=== PATIENT | male | born 1940 | race Caucasian/White ===

== ENCOUNTER 2020-01-01 20:54 | Inpatient (IN) | payer MEDICAID, OTHER ==
[~2020-01-01] VITALS: Ht 162.6 cm; Wt 72.1 kg
[2020-01-01] MEDS ORDERED: KETOROLAC 30MG/ML VIAL IV STA (21:12)
[2020-01-01] MEDS ORDERED: ONDANSETRON HCL 4MG/2ML INJ IV STA (21:12)
[2020-01-01] MEDS ORDERED: ASPIRIN 325MG TABLET PO ONE (21:15)
[2020-01-01] MEDS ORDERED: SODIUM CHLORIDE 0.9% 1000ML BAG (SEPSIS BOLUS) IV ONE (21:15)
[2020-01-01 22:40] LABS: BASOPHILS % 0.1 % (0.0-2.0); CLARITY URINE CLEAR (CLEAR); COLOR URINE DARK YELLOW (YELLOW); HEMATOCRIT. 41.5 % (42.0-52.0); HEMOGLOBIN. 14.2 g/dL (14.0-18.0); KETONES URINE 1+ (NEGATIVE); LEUKOCYTE ESTERASE URINE NEGATIVE (NEGATIVE); LYMPHOCYTES % 10.1 % (20.0-50.0); MEAN CORPUSCULAR VOLUME 90.5 fL (80.0-94.0); MEAN PLATELET VOLUME 8.9 fl (7.4-10.4); MONOCYTES % 4.6 % (2.0-8.0); NEUTROPHILS % 85.2 % (40.0-76.0); NITRITE URINE NEGATIVE (NEGATIVE); OCCULT BLOOD URINE NEGATIVE (NEGATIVE); PH URINE 5.5 (4.5-8.0); PLATELET 185 x1000/uL (130-400); PROTEIN URINE 2+ (NEGATIVE); RED BLOOD CELL COUNT 4.58 mill/uL (4.7-6.1); RED CELL DISTRIBUTION WIDTH 13.1 % (11.6-14.6); UROBILINOGEN URINE >8.0 E.U./dL (0.2-1.0)
[2020-01-01 22:46] LABS: CHLORIDE 100 mEq/L (98-107)
[2020-01-01 22:48] LABS: PROTHROMBIN TIME 10.5 sec (9.6-11.0)
[2020-01-01] MEDS ORDERED: CEFTRIAXONE 1 G PREMIX 50 ML IV ONE (23:15)
[2020-01-02] MEDS ORDERED: DOCUSATE SODIUM 100MG CAPSULE PO PRN (05:15)
[2020-01-02] MEDS ORDERED: MAGNESIUM/ALUMINUM HYDROXIDE/SIMETHICONE 30ML UDC PO PRN (05:15)
[2020-01-02] MEDS ORDERED: HYDROMORPHONE HCL/PF 2MG/ML CPJ IV PRN (05:15)
[2020-01-02 05:59] LABS: CREATINE KINASE 50 IU/L (39-308)
[2020-01-02] MEDS: AZITHROMYCIN 500 MG in DEXT 5% WATER 250 ML IV SCH (06:12)
[2020-01-02] MEDS: ENOXAPARIN 40MG/0.4ML SYR SUBCUT SCH (08:55)
[2020-01-02] MEDS: CLONIDINE 0.1MG TABLET PO PRN (15:21)
[2020-01-02] MEDS: HYDROCODONE/ACETAMINOPHEN 5/325MG TABLET PO PRN (15:22)
[2020-01-02] MEDS: GUAIFENESIN 200MG/10ML SUGAR FREE UDC PO PRN (15:22)
[2020-01-02] MEDS: ACETAMINOPHEN 325MG TABLET PO PRN (15:22)
[2020-01-02] MEDS: DEXAMETHASONE 4MG TABLET PO SCH (16:06)
[2020-01-02] MEDS: ALBUTEROL 6.7GM HFA INHALER ORI SCH ×2 (16:53→23:00)
[2020-01-02 17:02] LABS: CREATINE KINASE 48 IU/L (39-308)
[2020-01-02] MEDS ORDERED: CEFTRIAXONE 1 G PREMIX 50 ML IV SCH (21:00)
[2020-01-02 21:50] VITALS: BP 131/64
[2020-01-02 22:00] VITALS: BP 131/64
[2020-01-03] VITALS: BP 138/66
[2020-01-03] MEDS: CEFTRIAXONE 1 G PREMIX 50 ML IV SCH ×2 (00:42→21:42)
[2020-01-03 04:00] VITALS: BP 145/66
[2020-01-03] MEDS: ALBUTEROL 6.7GM HFA INHALER ORI SCH ×4 (05:51→22:27)
[2020-01-03 07:29] LABS: HEMATOCRIT. 39.7 % (42.0-52.0); HEMOGLOBIN. 13.6 g/dL (14.0-18.0); LYMPHOCYTES % 9.6 % (20.0-50.0); MEAN CORPUSCULAR VOLUME 90.6 fL (80.0-94.0); MONOCYTES % 2.8 % (2.0-8.0); NEUTROPHILS % 87.6 % (40.0-76.0); PLATELET 216 x1000/uL (130-400); RED BLOOD CELL COUNT 4.38 mill/uL (4.7-6.1); RED CELL DISTRIBUTION WIDTH 12.7 % (11.6-14.6)
[2020-01-03 07:44] LABS: CHLORIDE 105 mEq/L (98-107)
[2020-01-03] MEDS: AZITHROMYCIN 500 MG in DEXT 5% WATER 250 ML IV SCH (08:21)
[2020-01-03] MEDS: ENOXAPARIN 40MG/0.4ML SYR SUBCUT SCH (08:21)
[2020-01-03] MEDS: DEXAMETHASONE 4MG TABLET PO SCH (08:21)
[2020-01-03 12:00] VITALS: BP 151/62
[2020-01-03 16:00] VITALS: BP 104/56
[2020-01-03] MEDS ORDERED: REMDESIVIR 200 MG in SODIUM CHLORIDE 0.9% 250 ML IV NR (18:00)
[2020-01-03 20:00] VITALS: BP 146/68
[2020-01-03] MEDS: ENOXAPARIN 80MG/0.8ML SYR SUBCUT SCH (21:42)
[2020-01-04] VITALS: BP 165/78
[2020-01-04 04:00] VITALS: BP 163/65
[2020-01-04] MEDS: ALBUTEROL 6.7GM HFA INHALER ORI SCH ×4 (05:03→23:43)
[2020-01-04] MEDS: CLONIDINE 0.1MG TABLET PO PRN ×2 (05:24→20:37)
[2020-01-04 08:00] VITALS: BP 141/68
[2020-01-04] MEDS: DEXAMETHASONE 4MG TABLET PO SCH (08:37)
[2020-01-04] MEDS: GUAIFENESIN 200MG/10ML SUGAR FREE UDC PO PRN (08:37)
[2020-01-04] MEDS: ENOXAPARIN 80MG/0.8ML SYR SUBCUT SCH ×2 (08:37→20:37)
[2020-01-04] MEDS: AZITHROMYCIN 250 MG TABLET PO SCH (08:37)
[2020-01-04 12:00] VITALS: BP 144/67
[2020-01-04 16:00] VITALS: BP 141/75
[2020-01-04] MEDS: REMDESIVIR 100 MG in SODIUM CHLORIDE 0.9% 250 ML IV SCH (17:39)
[2020-01-04 20:00] VITALS: BP 166/80
[2020-01-04] MEDS: ONDANSETRON HCL 4MG/2ML INJ IV PRN (20:37)
[2020-01-04] MEDS: CEFTRIAXONE 1 G PREMIX 50 ML IV SCH (20:37)
[2020-01-05] VITALS: BP 123/87
[2020-01-05 04:00] VITALS: BP 150/86
[2020-01-05] MEDS: ALBUTEROL 6.7GM HFA INHALER ORI SCH ×3 (04:38→16:06)
[2020-01-05] MEDS: GUAIFENESIN 200MG/10ML SUGAR FREE UDC PO PRN (05:20)
[2020-01-05 08:00] VITALS: BP 160/95
[2020-01-05] MEDS: AZITHROMYCIN 250 MG TABLET PO SCH (08:30)
[2020-01-05] MEDS: ENOXAPARIN 80MG/0.8ML SYR SUBCUT SCH ×2 (08:31→21:02)
[2020-01-05] MEDS: DEXAMETHASONE 4MG TABLET PO SCH (08:31)
[2020-01-05] MEDS ORDERED: DILTIAZEM HCL 5MG/ML 5ML VIAL IV SCH (12:00)
[2020-01-05] MEDS: DILTIAZEM HCL 30MG TABLET PO SCH ×2 (12:00→17:27)
[2020-01-05 16:00] VITALS: BP_SYST 126; BP_SYST 144; BP_DIAS 63; BP_DIAS 87
[2020-01-05] MEDS: REMDESIVIR 100 MG in SODIUM CHLORIDE 0.9% 250 ML IV SCH (17:27)
[2020-01-05 20:00] VITALS: BP 128/72
[2020-01-05] MEDS: CEFTRIAXONE 1 G PREMIX 50 ML IV SCH (21:02)
[2020-01-06] VITALS: BP 141/81
[2020-01-06] MEDS: ALBUTEROL 6.7GM HFA INHALER ORI SCH ×4 (00:18→17:21)
[2020-01-06] MEDS: DILTIAZEM HCL 30MG TABLET PO SCH ×4 (00:19→17:04)
[2020-01-06 04:00] VITALS: BP 127/70
[2020-01-06 08:00] VITALS: BP 146/91
[2020-01-06] MEDS: AZITHROMYCIN 250 MG TABLET PO SCH (09:08)
[2020-01-06] MEDS: DEXAMETHASONE 4MG TABLET PO SCH (09:08)
[2020-01-06] MEDS: CLONIDINE 0.1MG TABLET PO PRN (09:08)
[2020-01-06] MEDS: ENOXAPARIN 80MG/0.8ML SYR SUBCUT SCH ×2 (09:08→21:34)
[2020-01-06] MEDS: ONDANSETRON HCL 4MG/2ML INJ IV PRN (09:19)
[2020-01-06 12:00] VITALS: BP 117/71
[2020-01-06] MEDS ORDERED: AMIODARONE HCL 150 MG in DEXT 5% WATER 100 ML IV NR (13:30)
[2020-01-06] MEDS ORDERED: AMIODARONE HCL 900 MG in DEXT 5% WATER 482 ML IV PRN (13:30)
[2020-01-06 16:00] VITALS: BP 106/61
[2020-01-06] MEDS: REMDESIVIR 100 MG in SODIUM CHLORIDE 0.9% 250 ML IV SCH (18:43)
[2020-01-06 20:48] VITALS: BP 145/87
[2020-01-06] MEDS: CEFTRIAXONE 1 G PREMIX 50 ML IV SCH (21:33)
[2020-01-06] MEDS: GUAIFENESIN 200MG/10ML SUGAR FREE UDC PO PRN (21:55)
[2020-01-07] MEDS: ALBUTEROL 6.7GM HFA INHALER ORI SCH ×4 (00:43→16:26)
[2020-01-07] MEDS: DILTIAZEM HCL 30MG TABLET PO SCH ×4 (00:44→18:32)
[2020-01-07 00:48] VITALS: BP 152/102
[2020-01-07] MEDS: HYDROCODONE/ACETAMINOPHEN 5/325MG TABLET PO PRN (01:04)
[2020-01-07 04:00] VITALS: BP 125/96
[2020-01-07] MEDS: ACETAMINOPHEN 325MG TABLET PO PRN (05:54)
[2020-01-07] MEDS: DEXAMETHASONE 4MG TABLET PO SCH ×2 (07:52→07:53)
[2020-01-07] MEDS: ENOXAPARIN 80MG/0.8ML SYR SUBCUT SCH ×2 (07:53→21:27)
[2020-01-07 08:00] VITALS: BP 135/85
[2020-01-07 12:00] VITALS: BP 123/74
[2020-01-07 16:00] VITALS: BP 114/65
[2020-01-07] MEDS: REMDESIVIR 100 MG in SODIUM CHLORIDE 0.9% 250 ML IV SCH (18:32)
[2020-01-07 20:00] VITALS: BP 151/95
[2020-01-07] MEDS: CEFTRIAXONE 1 G PREMIX 50 ML IV SCH (21:26)
[2020-01-08] VITALS: BP 153/94
[2020-01-08] MEDS: DILTIAZEM HCL 30MG TABLET PO SCH ×3 (00:09→12:31)
[2020-01-08] MEDS: ALBUTEROL 6.7GM HFA INHALER ORI SCH ×3 (00:10→11:34)
[2020-01-08 04:00] VITALS: BP_SYST 111; BP_SYST 156; BP_DIAS 56; BP_DIAS 79
[2020-01-08 08:00] VITALS: BP 134/85
[2020-01-08] MEDS: DEXAMETHASONE 4MG TABLET PO SCH (08:06)
[2020-01-08] MEDS: ENOXAPARIN 80MG/0.8ML SYR SUBCUT SCH (08:06)
[2020-01-08 12:00] VITALS: BP 142/88
[2020-01-08 14:39] VITALS: BP 128/85
[2020-01-08 16:00] VITALS: BP 135/88
== END 2020-01-08 17:15 | disposition home or self-care (01) | DRG 720 ==
LOC: ER 20:54 → 7WST 23:07 → ENRESERV 01-02 20:06
PROVIDERS: ADMIT Hospitalist; ATTEND Hospitalist
DX: A41.89 Other specified sepsis (principal); U07.1 COVID-19; J96.00 Acute respiratory failure, unspecified whether with hypoxia or hypercapnia; E43 Unspecified severe protein-calorie malnutrition; J12.89 Other viral pneumonia; R74.0 Nonspecific elevation of levels of transaminase and lactic acid dehydrogenase [LDH]; I48.91 Unspecified atrial fibrillation; Z79.01 Long term (current) use of anticoagulants; Z68.27 Body mass index [BMI] 27.0-27.9, adult
CPT/HCPCS: 36415; 71045; 80053; 80076; 81003; 82550; 82728; 82962; 83605; 83615; 83880; 84145; 84484; 85025; 93005; 93970; 94640; 99291; J0282; J0456; J0696; J1650; J1885; J2405; J3490; J7030; J7050; J7060; J8540; Q9957; C9803-CS; U0003-CS

== ENCOUNTER 2020-03-10 23:58 | Inpatient (IN) | payer MEDICAID ==
[~2020-03-10] VITALS: Ht 167.6 cm; Wt 77.1 kg
[2020-03-11 01:13] LABS: CHLORIDE 103 mEq/L (98-107)
[2020-03-11 01:21] LABS: BASOPHILS % 0.9 % (0.0-2.0); EOSINOPHILS % 4.4 % (0.0-5.0); HEMATOCRIT. 36.3 % (42.0-52.0); HEMOGLOBIN. 11.9 g/dL (14.0-18.0); LYMPHOCYTES % 25.1 % (20.0-50.0); MEAN CORPUSCULAR HEMOGLOBIN 28.2 pg (28.0-32.0); MEAN CORPUSCULAR VOLUME 86.3 fL (80.0-94.0); MEAN PLATELET VOLUME 9.1 fl (7.4-10.4); NEUTROPHILS % 60.6 % (40.0-76.0); PLATELET 194 x1000/uL (130-400); RED BLOOD CELL COUNT 4.21 mill/uL (4.7-6.1); RED CELL DISTRIBUTION WIDTH 15.2 % (11.6-14.6)
[2020-03-11] MEDS ORDERED: FUROSEMIDE 20MG/2ML VIAL IVP ONE (02:30)
[2020-03-11] MEDS ORDERED: ONDANSETRON HCL 4MG/2ML INJ IV PRN (03:30)
[2020-03-11] MEDS ORDERED: CLONIDINE 0.1MG TABLET PO PRN (03:30)
[2020-03-11] MEDS ORDERED: DIPHENHYDRAMINE 50MG/ML VIAL IV PRN (03:30)
[2020-03-11] MEDS ORDERED: ACETAMINOPHEN 325MG TABLET PO PRN (03:30)
[2020-03-11] MEDS ORDERED: GUAIFENESIN 200MG/10ML SUGAR FREE UDC PO PRN (03:30)
[2020-03-11] MEDS ORDERED: IPRATROPIUM/ALBUTEROL 0.5-3(2.5)MG/3ML NEB HHN PRN (03:30)
[2020-03-11] MEDS ORDERED: HYDROCODONE/ACETAMINOPHEN 5/325MG TABLET PO PRN (03:30)
[2020-03-11] MEDS ORDERED: MAGNESIUM/ALUMINUM HYDROXIDE/SIMETHICONE 30ML UDC PO PRN (03:30)
[2020-03-11] MEDS: DILTIAZEM HCL 30MG TABLET PO SCH ×3 (06:27→17:18)
[2020-03-11] MEDS: SODIUM CHLORIDE 0.9% INJ 3ML FLUSH IVF SCH ×2 (06:28→11:44)
[2020-03-11 08:48] VITALS: BP_SYST 154; BP_SYST 177; BP_DIAS 95
[2020-03-11] MEDS: AMIODARONE HCL 200 MG TABLET PO SCH (10:22)
[2020-03-11] MEDS: APIXABAN 5 MG TABLET PO SCH ×2 (10:22→16:40)
[2020-03-11 12:00] VITALS: BP 148/86
[2020-03-11 16:00] VITALS: BP 106/82
[2020-03-11 19:52] VITALS: BP 142/97
[2020-03-11 20:15] LABS: CREATINE KINASE 43 IU/L (39-308)
[2020-03-11 20:16] LABS: CREATINE KINASE MB FRACTION 1.3 ng/mL (0.5-3.6); T4 FREE 1.25 ng/dL (0.76-1.46)
[2020-03-11] MEDS ORDERED: ZOLPIDEM TARTRATE 5MG TABLET PO PRN (21:00)
[2020-03-12 00:10] LABS: CREATINE KINASE 44 IU/L (39-308)
[2020-03-12 00:11] LABS: CREATINE KINASE MB FRACTION 1.1 ng/mL (0.5-3.6)
[2020-03-12] MEDS: DILTIAZEM HCL 30MG TABLET PO SCH ×4 (01:00→17:49)
[2020-03-12] MEDS: SODIUM CHLORIDE 0.9% INJ 3ML FLUSH IVF SCH ×4 (01:00→21:28)
[2020-03-12 05:00] VITALS: BP 134/80
[2020-03-12 06:00] LABS: CREATINE KINASE 36 IU/L (39-308)
[2020-03-12 06:01] LABS: CREATINE KINASE MB FRACTION 1.2 ng/mL (0.5-3.6)
[2020-03-12 08:00] VITALS: BP 144/96
[2020-03-12] MEDS: APIXABAN 5 MG TABLET PO SCH ×2 (08:18→17:49)
[2020-03-12] MEDS: AMIODARONE HCL 200 MG TABLET PO SCH (08:19)
[2020-03-12] MEDS: ACETAMINOPHEN 325MG TABLET PO PRN (10:45)
[2020-03-12 12:00] VITALS: BP 136/89
[2020-03-12] MEDS ORDERED: FUROSEMIDE 40MG/4ML VIAL IVP SCH (13:15)
[2020-03-12 14:00] VITALS: BP 139/79
[2020-03-12 16:00] VITALS: BP 129/87
[2020-03-12 20:00] VITALS: BP 129/84
[2020-03-12] MEDS: FUROSEMIDE 40MG/4ML VIAL IVP SCH (20:30)
[2020-03-13] VITALS: BP 121/80
[2020-03-13] MEDS: DILTIAZEM HCL 30MG TABLET PO SCH ×3 (01:22→13:26)
[2020-03-13 04:00] VITALS: BP 116/69
[2020-03-13] MEDS: SODIUM CHLORIDE 0.9% INJ 3ML FLUSH IVF SCH (06:22)
[2020-03-13] MEDS: FUROSEMIDE 40MG/4ML VIAL IVP SCH ×2 (06:22→16:29)
[2020-03-13 07:21] LABS: CHLORIDE 101 mEq/L (98-107)
[2020-03-13 07:26] LABS: PHOSPHORUS 3.8 mg/dL (2.5-4.9)
[2020-03-13 08:00] VITALS: BP 124/81
[2020-03-13] MEDS: APIXABAN 5 MG TABLET PO SCH ×2 (08:22→16:29)
[2020-03-13] MEDS: AMIODARONE HCL 200 MG TABLET PO SCH (08:22)
[2020-03-13 12:00] VITALS: BP 114/66
[2020-03-13] MEDS: ACETAMINOPHEN 325MG TABLET PO PRN (13:29)
[2020-03-13 16:00] VITALS: BP 124/80
[2020-03-13 16:14] VITALS: BP 120/84
== END 2020-03-13 17:30 | disposition home or self-care (01) | DRG 201 ==
LOC: ER 23:58 → 7WST 03-11 03:02 → ENRESERV 03-11 07:51 → 6WST 03-12 14:15
PROVIDERS: ADMIT Internal Medicine; ATTEND Internal Medicine
DX: I48.91 Unspecified atrial fibrillation (principal); J96.01 Acute respiratory failure with hypoxia; J18.9 Pneumonia, unspecified organism; M19.90 Unspecified osteoarthritis, unspecified site; I50.43 Acute on chronic combined systolic (congestive) and diastolic (congestive) heart failure; Z79.01 Long term (current) use of anticoagulants; Z20.828 Contact with and (suspected) exposure to other viral communicable diseases; Z79.899 Other long term (current) drug therapy; Z86.19 Personal history of other infectious and parasitic diseases
CPT/HCPCS: 36415; 71045; 80048; 80053; 80061; 82550; 82553; 83036; 83735; 83880; 84100; 84439; 84443; 84484; 85025; 85379; 87635; 93005; 93306; 94640; 99291; J1940

== ENCOUNTER 2021-02-23 07:14 | Emergency (ER) | payer MEDICAID ==
[~2021-02-23] VITALS: Ht 167.6 cm; Wt 72.0 kg
[~2021-02-23 07:14] MED LIST: APIX5TAB PO; DILT60TA35 PO; FURO-151 MT; POTA-9 MT
[2021-02-23 07:19] VITALS: BP 142/112
[2021-02-23 09:14] LABS: BASOPHILS % 0.7 % (0.0-2.0); EOSINOPHILS % 4.8 % (0.0-5.0); HEMATOCRIT. 41.3 % (42.0-52.0); HEMOGLOBIN. 13.7 g/dL (14.0-18.0); LYMPHOCYTES % 23.4 % (20.0-50.0); MEAN CORPUSCULAR HEMOGLOBIN 28.9 pg (28.0-32.0); MEAN CORPUSCULAR VOLUME 87.1 fL (80.0-94.0); MONOCYTES % 7.3 % (2.0-8.0); NEUTROPHILS % 63.8 % (40.0-76.0); PLATELET 174 x1000/uL (130-400); RED BLOOD CELL COUNT 4.74 mill/uL (4.7-6.1); RED CELL DISTRIBUTION WIDTH 15.3 % (11.6-14.6)
[2021-02-23 09:19] LABS: CHLORIDE 107 mEq/L (98-107)
[2021-02-23 09:23] LABS: INR 1.1; PARTIAL THROMBOPLASTIN TIME 29.1 sec (23.4-31.0); PROTHROMBIN TIME 11.4 sec (9.6-11.0)
[2021-02-23] MEDS ORDERED: IBUPROFEN 600MG TABLET PO ONE (10:00)
== END 2021-02-23 11:11 | disposition home or self-care (01) ==
LOC: ER 07:14
DX: M47.892 Other spondylosis, cervical region (principal)
CPT/HCPCS: 36415; 70450; 72125; 73590; 80048; 85025; 85610; 85730; 99285; Z7610

== ENCOUNTER 2024-05-22 11:34 | Inpatient (IN) | payer MEDICAID ==
[~2024-05-22] VITALS: Ht 160 cm; Wt 72.6 kg
[~2024-05-22 11:34] MED LIST changes: +POTA-202 MT; -POTA-9 MT
[2024-05-22] MEDS: DILTIAZEM HCL 5MG/ML 5ML VIAL IV ONE (12:44)
[2024-05-22] MEDS: DILTIAZEM HCL 30MG TABLET PO ONE (12:50)
[2024-05-22 12:51] LABS: BASOPHILS % 0.4 % (0.0-2.0); CHLORIDE 104 mEq/L (98-107); EOSINOPHILS % 2.6 % (0.0-5.0); HEMOGLOBIN. 12.1 g/dL (14.0-18.0); LYMPHOCYTES % 17.9 % (20.0-50.0); MEAN CORPUSCULAR HEMOGLOBIN 28.7 pg (28.0-32.0); MEAN CORPUSCULAR HGB CONC 32.7 g/dL (31.0-37.0); MEAN CORPUSCULAR VOLUME 87.9 fL (80.0-94.0); MEAN PLATELET VOLUME 8.4 fl (7.4-10.4); MONOCYTES % 8.5 % (2.0-8.0); NEUTROPHILS % 70.6 % (40.0-76.0); PLATELET 222 x1000/uL (130-400); POTASSIUM 4.3 mEq/L (3.5-5.1); RED BLOOD CELL COUNT 4.21 mill/uL (4.7-6.1); RED CELL DISTRIBUTION WIDTH 14.4 % (11.6-14.6); SODIUM 137 mEq/L (136-145); WHITE BLOOD COUNT 7.4 x1000/uL (4.5-11.0)
[2024-05-22 12:52] LABS: CALCIUM 9.6 mg/dL (8.7-10.4); CARBON DIOXIDE 25 mEq/L (21-32)
[2024-05-22 12:57] LABS: CREATININE 0.9 mg/dL (0.6-1.3); GLUCOSE 96 mg/dL (70-105); UREA NITROGEN BLOOD 9 mg/dL (9-23)
[2024-05-22 12:58] LABS: TROPONIN I HIGH SENSITIVITY 13 ng/L (3.0-53)
[2024-05-22] MEDS: ENOXAPARIN 60MG/0.6ML SYR SUBCUT ONE (14:12)
[2024-05-22] MEDS ORDERED: ACETAMINOPHEN 325MG TABLET PO PRN (14:15)
[2024-05-22] MEDS ORDERED: ONDANSETRON HCL 4MG/2ML INJ IV PRN (14:15)
[2024-05-22] MEDS ORDERED: NITROGLYCERIN 0.4MG TABLET SL SL PRN (14:45)
[2024-05-22 15:31] LABS: CLARITY URINE CLEAR (CLEAR); COLOR URINE YELLOW (YELLOW); GLUCOSE URINE NEGATIVE (NEGATIVE); KETONES URINE NEGATIVE (NEGATIVE); LEUKOCYTE ESTERASE URINE NEGATIVE (NEGATIVE); NITRITE URINE NEGATIVE (NEGATIVE); OCCULT BLOOD URINE NEGATIVE (NEGATIVE); PROTEIN URINE NEGATIVE (NEGATIVE); SPECIFIC GRAVITY URINE 1.006 (1.005-1.030)
[2024-05-22] MEDS: FUROSEMIDE 20MG/2ML VIAL IVP SCH (15:32)
[2024-05-22 15:44] LABS: *AMPHETAMINES SCREEN URINE NEGATIVE (NEGATIVE); *BARBITURATES SCREEN URINE NEGATIVE (NEGATIVE); *BENZODIAZEPINES SCREEN URINE NEGATIVE (NEGATIVE); *COCAINE SCREEN URINE NEGATIVE (NEGATIVE); METHADONE URINE SCREEN NEGATIVE (NEGATIVE); OPIATES URINE SCREEN NEGATIVE (NEGATIVE)
[2024-05-22 15:45] LABS: CANNABINOID URINE SCREEN NEGATIVE (NEGATIVE); ECSTASY MDMA SCREEN URINE NEGATIVE (NEGATIVE); PHENCYCLIDINE URINE SCREEN NEGATIVE (NEGATIVE)
[2024-05-22 15:53] LABS: PHOSPHORUS 3.2 mg/dL (2.5-4.9)
[2024-05-22 15:56] LABS: THYROID STIMULATING HORMONE 0.35 uIU/mL (0.55-4.78)
[2024-05-22] MEDS: PANTOPRAZOLE SODIUM 40 MG/VIAL IV SCH (16:45)
[2024-05-22 16:58] LABS: IRON 71 ug/dL (65-175)
[2024-05-22 17:01] LABS: TOTAL IRON BINDING CAPACITY 383 ug/dl (250-425)
[2024-05-22 17:04] LABS: FOLIC ACID (FOLATE) SERUM > 20.00 ng/mL (>5.38)
[2024-05-22 17:05] LABS: VITAMIN B12 SERUM 268 pg/mL (211-911)
[2024-05-22 17:30] VITALS: BP 143/80; PULSE 104; RESP 18; TEMP 36.61404; TEMP 36.6404; O2SAT 98
[2024-05-22 20:00] VITALS: BP 138/69; PULSE 105; RESP 18; TEMP 36.6696; O2SAT 98
[2024-05-22] MEDS ORDERED: DILTIAZEM HCL 30MG TABLET PO SCH (22:00)
[2024-05-22] MEDS: DILTIAZEM HCL 60MG TABLET PO SCH (23:24)
[2024-05-23] VITALS: BP 125/73; PULSE 82; RESP 18; TEMP 36.61404; O2SAT 100
[2024-05-23] MEDS: IPRATROPIUM/ALBUTEROL 0.5-3(2.5)MG/3ML NEB HHN PRN
[2024-05-23 00:02] VITALS: PULSE 92; RESP 20; O2SAT 95
[2024-05-23 04:00] VITALS: BP 137/72; PULSE 90; RESP 18; TEMP 36.33624; O2SAT 96
[2024-05-23 08:00] VITALS: BP 136/77; PULSE 101; RESP 18; TEMP 36.72516; O2SAT 98
[2024-05-23 08:43] LABS: BASOPHILS % 0.4 % (0.0-2.0); EOSINOPHILS % 2.5 % (0.0-5.0); HEMATOCRIT. 37.7 % (42.0-52.0); HEMOGLOBIN. 12.4 g/dL (14.0-18.0); LYMPHOCYTES % 19.1 % (20.0-50.0); MEAN CORPUSCULAR HEMOGLOBIN 28.7 pg (28.0-32.0); MEAN CORPUSCULAR HGB CONC 32.9 g/dL (31.0-37.0); MEAN CORPUSCULAR VOLUME 87.3 fL (80.0-94.0); MEAN PLATELET VOLUME 8.5 fl (7.4-10.4); MONOCYTES % 9.1 % (2.0-8.0); NEUTROPHILS % 68.9 % (40.0-76.0); PLATELET 222 x1000/uL (130-400); RED BLOOD CELL COUNT 4.32 mill/uL (4.7-6.1); RED CELL DISTRIBUTION WIDTH 14.5 % (11.6-14.6); WHITE BLOOD COUNT 6.3 x1000/uL (4.5-11.0)
[2024-05-23 08:46] LABS: CARBON DIOXIDE 26 mEq/L (21-32); CHLORIDE 102 mEq/L (98-107); POTASSIUM 3.8 mEq/L (3.5-5.1); SODIUM 139 mEq/L (136-145)
[2024-05-23 08:47] LABS: CALCIUM 9.6 mg/dL (8.7-10.4)
[2024-05-23 08:51] LABS: CREATININE 0.9 mg/dL (0.6-1.3); TROPONIN I HIGH SENSITIVITY 11 ng/L (3.0-53)
[2024-05-23 08:52] LABS: GLUCOSE 96 mg/dL (70-105); LDL CHOLESTEROL 86 mg/dL (5-100); TRIGLYCERIDE 77 mg/dL (0-150); UREA NITROGEN BLOOD 12 mg/dL (9-23)
[2024-05-23 08:54] LABS: CHOLESTEROL 170 mg/dL (<200); HDL CHOLESTEROL 61 mg/dL (>55)
[2024-05-23 08:55] LABS: THYROID STIMULATING HORMONE 0.31 uIU/mL (0.55-4.78)
[2024-05-23] MEDS: ASPIRIN 81MG EC TABLET PO SCH (09:25)
[2024-05-23] MEDS: APIXABAN 5 MG TABLET PO SCH (09:25)
[2024-05-23] MEDS: MAGNESIUM 2 G PREMIX 50 ML IV SCH (11:09)
[2024-05-23] MEDS: MAGNESIUM OXIDE 400MG TABLET PO SCH (11:09)
[2024-05-23 12:00] VITALS: BP 138/80; PULSE 98; RESP 18; TEMP 36.61404; O2SAT 100
[2024-05-23 16:00] VITALS: BP 129/86; PULSE 84; RESP 18; TEMP 36.6696; O2SAT 98
[2024-05-24] VITALS: PULSE 78; RESP 18; TEMP 36.61404; O2SAT 100
[2024-05-24 04:00] VITALS: PULSE 78; RESP 18; TEMP 36.78072; O2SAT 99
[2024-05-24 08:00] VITALS: BP 133/70; PULSE 83; RESP 20; TEMP 36.78072; O2SAT 100
[2024-05-24 11:45] LABS: BASOPHILS % 0.5 % (0.0-2.0); EOSINOPHILS % 3.1 % (0.0-5.0); HEMATOCRIT. 41.4 % (42.0-52.0); HEMOGLOBIN. 13.2 g/dL (14.0-18.0); LYMPHOCYTES % 15.4 % (20.0-50.0); MEAN CORPUSCULAR HEMOGLOBIN 28.4 pg (28.0-32.0); MEAN CORPUSCULAR HGB CONC 31.9 g/dL (31.0-37.0); MEAN CORPUSCULAR VOLUME 89.2 fL (80.0-94.0); MEAN PLATELET VOLUME 10.4 fl (7.4-10.4); MONOCYTES % 6.6 % (2.0-8.0); NEUTROPHILS % 74.4 % (40.0-76.0); PLATELET 421 x1000/uL (130-400); RED BLOOD CELL COUNT 4.65 mill/uL (4.7-6.1); RED CELL DISTRIBUTION WIDTH 14.8 % (11.6-14.6); WHITE BLOOD COUNT 7.8 x1000/uL (4.5-11.0)
[2024-05-24 12:00] VITALS: BP 124/82; PULSE 80; RESP 18; TEMP 36.44736; O2SAT 99
[2024-05-24 12:09] LABS: CHLORIDE 103 mEq/L (98-107); POTASSIUM 4.4 mEq/L (3.5-5.1); SODIUM 138 mEq/L (136-145)
[2024-05-24 12:10] LABS: CALCIUM 9.7 mg/dL (8.7-10.4); CARBON DIOXIDE 28 mEq/L (21-32)
[2024-05-24 12:15] LABS: CREATININE 1.1 mg/dL (0.6-1.3); GLUCOSE 99 mg/dL (70-105); UREA NITROGEN BLOOD 15 mg/dL (9-23)
[2024-05-24 16:00] VITALS: BP 144/82; PULSE 81; RESP 20; TEMP 36.00288; O2SAT 97
[2024-05-24 20:00] VITALS: BP 147/90; PULSE 73; RESP 18; TEMP 36.44736; O2SAT 96
[2024-05-24] MEDS: ACETAMINOPHEN 325MG TABLET PO PRN (20:30)
[2024-05-25] VITALS: BP 145/89; PULSE 89; RESP 18; TEMP 36.55848; O2SAT 100
[2024-05-25 04:00] VITALS: BP 115/66; PULSE 85; RESP 18; TEMP 36.44736; O2SAT 100
[2024-05-25 08:00] VITALS: BP 128/81; PULSE 93; RESP 18; TEMP 36.22512; O2SAT 96
[2024-05-25] MEDS: FAMOTIDINE 20MG/2ML VIAL IV SCH (09:06)
[2024-05-25 12:00] VITALS: BP 105/58; PULSE 96; RESP 18; TEMP 35.66952; O2SAT 96
[2024-05-25 14:50] VITALS: RESP 18
[2024-05-25] MEDS: IBUPROFEN 400MG TABLET PO NR (14:50)
[2024-05-25 15:45] VITALS: BP 105/58; PULSE 96; TEMP 96.2; O2SAT 96
[2024-05-25] MEDS ORDERED: MAGN400C MT (15:51)
== END 2024-05-25 16:33 | disposition home or self-care (01) | DRG 194 ==
LOC: ER 11:45 → 7EST 13:14 → EDBEDREQ 13:17
PROVIDERS: ADMIT Internal Medicine; ATTEND Internal Medicine
DX: I11.0 Hypertensive heart disease with heart failure (principal); Z79.01 Long term (current) use of anticoagulants; I48.19 Other persistent atrial fibrillation; Z95.1 Presence of aortocoronary bypass graft; D64.9 Anemia, unspecified; D72.821 Monocytosis (symptomatic); I25.10 Atherosclerotic heart disease of native coronary artery without angina pectoris; I50.23 Acute on chronic systolic (congestive) heart failure; R07.89 Other chest pain; E78.5 Hyperlipidemia, unspecified; E05.90 Thyrotoxicosis, unspecified without thyrotoxic crisis or storm; Z79.82 Long term (current) use of aspirin; Z87.891 Personal history of nicotine dependence; Z91.148 Patient's other noncompliance with medication regimen for other reason; Z79.899 Other long term (current) drug therapy
CPT/HCPCS: 36415; 71045; 80048; 80061; 80305; 81003; 82607; 82746; 83036; 83540; 83550; 83605; 83735; 83880; 84100; 84439; 84443; 84484; 85025; 93005; 93306; 93970; 94640; 99291; J1650; J1940; J2470; J3475; J3490